=== PATIENT | male | born 1955 | race Caucasian/White ===

== ENCOUNTER → 2023-04-24 | Outpatient (CLI) | payer MEDICARE, OTHER, SELFPAY ==
--- NOTE | 2023-04-24 14:25 | CT_ITS ---
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 2D reformats were reviewed. A radiation dose optimization technique was used for this scan. IV Contrast dosage and agent: None. RADIATION DOSAGE (If Supplied By Facility): CTDIvol = ( 27.28 ) mGy, DLP = ( 1074.06 ) mGycm COMPARISON: No relevant prior comparison study available FINDINGS: VERTEBRAE: Lucency in the inferior aspect of the vertebral body of T4 vertebra probably chronic. No evidence of acute compression fracture deformity. No otherwise discrete lytic or blastic abnormality observed. VERTEBRAL ALIGNMENT: Mild increased kyphosis. Minimal dextroscoliosis. The alignment of the vertebral bodies unremarkable. DISCS: Narrowing of several thoracic and upper lumbar disc spaces with vacuum discs. Endplate spondylosis at multiple levels. Posterior fusion of the cervical and upper thoracic spine to the level of T7. Difficult to accurately evaluate the disks and the soft tissues due to significant artifacts. VISUALIZED THORAX: Visualized thoracic aorta is nondilated. The visualized lungs appear unremarkable. CT/Spine Thoracic without Contras IMPRESSION: 1. Fusion of the cervical and upper thoracic spine. 2. Multilevel degenerative changes. Electronically Signed: Levy Fitch MD at 15:46 EST ,
--- NOTE | 2023-04-24 14:25 | CT_ITS ---
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 2D reformatted images were reviewed. A radiation dose optimization technique was used for this scan. IV Contrast dosage and agent: None. RADIATION DOSAGE (If Supplied By Facility): CTDIvol = ( 26.13 ) mGy, DLP = ( 523.35 ) mGycm COMPARISON: No relevant prior comparison study available FINDINGS: VERTEBRAE: No fracture or traumatic subluxation. No discrete lytic or blastic abnormality. Straightening of the cervical spine. Alignment of the vertebral bodies is essentially unremarkable. Demineralization of the osseous structures. Normal craniocervical junction and cervicothoracic junction. DISCS and SPINAL CANAL: Posterior fusion of the entire cervical spine and visualized upper thoracic spine extending from the level of C1 with bilateral pedicle screws and rods. Laminectomy extending from the level of C2-C3 to the level of C7. Bilateral bony neural foraminal stenosis worse at the levels of C3-C4 and C4-C5. Difficult to accurately evaluate the disks due to artifacts. NECK SOFT TISSUES: No prevertebral soft tissue swelling. There is no cervical adenopathy. LUNG APICES: Clear. CT/Spine Cervical without Contras IMPRESSION: 1. No evidence of acute cervical spinal fracture or spondylolisthesis. 2. Fusion of the cervical and upper thoracic spine as described above. Electronically Signed: Levy Fitch MD at 15:23 EST ,
--- OUTSIDE RECORDS SUMMARY | 2023-04-24 14:36 | XMS RPT_ITS | CCD ---
Author Name Unknown Address [address] [place] [address] Organization [facility] Care Team Providers Care Ocean Export Account Manager Name Role Phone Valery MONTANA Primary Care Unavailable Valery MONTANA Primary Care Unavailable Valery MONTANA Attending Unavailable Valery MONTANA Admitting Unavailable Valery MONTANA Attending Unavailable Valery MONTANA Admitting Unavailable Valery MONTANA Primary Care Unavailable Valery MONTANA Consulting Unavailable Valery MONTANA Attending Unavailable NAN, R SPIKE Admitting Unavailable NAN, R SPIKE Primary Care Unavailable PROVIDER, UNKNOWN Consulting Unavailable PROVIDER, UNKNOWN Consulting Unavailable PROVIDER, UNKNOWN Consulting Unavailable Valery MONTANA Consulting Unavailable OSCAR BENITEZ MD Admitting Unavailable OSCAR BENITEZ MD Primary Care Unavailable OSCAR BENITEZ MD Attending Unavailable PROVIDER, UNKNOWN Consulting Unavailable PROVIDER, UNKNOWN Consulting Unavailable PROVIDER, UNKNOWN Consulting Unavailable Valery MONTANA MD Unavailable [facility] Unavailable NEUROLOGY, GENERAL Unavailable Unavailable PHYSICAL THERAPY, CONSULT Unavailable Unavai lable OCCUPATIONAL, THERAPY Unavailable Unavailabl barbara JUSTICE MD, JESSICA Streeter Unavailable [facility] [place] Unavailable Unavailable SURGERY, GENERAL Unavailable Unavailable SHARLENE DENNEY, GRABIEL Unavailable LYDIA HICKS MD Unavailable ORTHOPEDICS, REMINGTON Unavailable RICARDO MCALLISTER MD Unavailable Nelia PURVIS MD Unavailable Hailey Ramos RN Unavailable Unavailable Loyda AYALA, Ruthie Unavailable UnavailJOZEF Renee Unavailable Unavailable KHANG ELLIOTT Unavailable Unavailable Elba AYALA, Maggi Unavailable Unavailable Zoey Escamilla Unavailable Unavailable Jamal Mcallister Unavailable Unavailable GRIS PURVIS Unavailable Unavailable TORRES GARNER Unavailable Unavailable ARABELLA DENNEY, PAGE Baugh Unavailable TETO AYALA, SARAH Unavailable Unavailable Eladia AYALA, Karma Unavailable Unavailab Aliyah Myrick Unavailable Unavailable Alecia Purvis Unavailable Unavailable BRIAN RABAGO Unavailable Unavailable Unavailable Unavailable Allergies Allergy Classification Reported Allergen(s) Allergy Type Date of Onset Reaction(s) Facility (1 source) 11/30/2018 (+) CDIFF TOXIN & AG; Translations: [11/30/2018 (+) CDIFF TOXIN & AG] Propensity to adverse reactions (disorder) [facility] Repository (1 source) Hmg-Coa Reductase Inhibitors (Statins) 3 [facility]; [facility] Medications Current Medications Medication Drug Class(es) Dates Sig (Normalized) Sig (Original) aspirin 81 mg delayed release oral tablet (1 source) Platelet Aggregation Inhibitor, Nonsteroidal Anti-inflammatory Drug take 1 tablet by mouth once daily ASPIRIN ADULT LOW STRENGTH, 81MG (Oral Tablet Delayed Release) ; 1 daily (81 MG) baclofen 20 mg oral tablet (1 source) gamma-Aminobutyric Acid-ergic Agonist Start: 10-13-2022 baclofen 20 mg tablet ; 1 (one) Tablet three times daily for 30 days Quantity: 135 {Tablet} Refills: 5 Ordered: 13-Oct-2022 MD Valery MONTANA Start: 13-Oct-2022 Comments: 2 tablets in am, 1 at noon, 1.5 tablets at bedtime. Completed/Discontinued Medications Medication Drug Class(es) Dates Sig (Normalized) Sig (Original) acetaminophen 650 mg oral tablet (1 source) take 1 tablet by mouth between dinner and bedtime Acetaminophen 650 MG Oral Tablet ; 1 every evening (650 MG) Status: Inactive acetaminophen 300 mg / codeine phosphate 30 mg oral tablet (1 source) Opioid Agonist Start: 09-23-2011 End: 09-28-2011 take 1 tablet by mouth every six hours as needed ACETAMINOPHEN-CODEI NE #3, 300-30MG (Oral Tablet) ; 1 (one) Tablet every six hours, as needed DO NOT TAKE IF DRIVING for 5 days Quantity: 20 {Tablet} Refills: 0 Ordered: 03-Oct-2011 MD Valery MONTANA Start: 23-Sep-2011 End: 28-Sep-2011 Status: Inactive Comments: Medication taken as needed. Problems Active Problems Problem Classification Problem Date Documented Da te Episodic/Chronic Acquired foot deformities (3 sources) Left foot drop; Translations: [Foot drop, left foot] 07-28-2022 Episodic Complication of device; implant or graft (1 source) Infection associated with catheter; Translations: [Infection and inflammatory reaction due to cranial or spinal infusion catheter, initial encounter] 06-11-2018 Episodic Congestive heart failure; nonhypertensive (2 sources) Chronic heart failure; Translations: [Heart failure, unspecified] 10-19-2022 Chronic Coronary atherosclerosis and other heart disease (9 sources) Multi vessel coronary artery disease; Translations: [Atherosclerotic heart disease of [place] coronary artery without angina pectoris] 05-07-2020 Chronic Past or Other Problems Problem Classification Problem Date Documented Da te Episodic/Chronic Coronary atherosclerosis and other heart disease (2 sources) Coronary atherosclerosis and other heart disease 12-07-2021 Unclassified (1 source) !Patient notification of lab results - Dr. Montana. The test(s) that you had done were/was blood work. The results of your testing were normal . You should call our office if you have any questions. Please continue your current medication/therapy and follow up as scheduled. 12-19-2022 Unclassified (1 source) !Patient notification of lab results - Dr. Montana. The test(s) that you had done were/was blood work (This showed that your potassium was 6.0 which is high. The previous result was 5.6. Please let us know if you are taking any potassium supplement and also whether you were at a draw station for the labs in October and this week or if you were at the hospital lab. If you weren't at the hospital lab, we should repeat these at the hospital lab to be sure the potassium isn't leaking out of the cells during the transport of the specimen (and causing a false elevation). The level is high enough on the most recent test that I would recommend getting the testing done in the next day or two because if it's truly that elevated, you may need some changes to your medication regimen.). You should call our office if you have any questions. 11-22-2022 Unclassified (1 source) !Patient notification of lab results - Dr. Montana. The test(s) that you had done were/was blood work (The test for potential heart failure was somewhat elevated so I would recommend you continue the 20 mg of furosemide and get labs in 2 weeks but continue the medication. Your potassium was elevated at 5.6 but this will be repeated with the scheduled lab. I would like to schedule an echocardiogram to assess your heart function.). You should call our office if you have any questions. 10-19-2022 Unclassified (1 source) Skin Lesion, Facial - Note for Facial skin lesion : Left judaism mole has changed and is now growing outward. Right shoulder has lesion which currently appears similar to judaism lesion in the beginning. No pain. 10-19-2022 Unclassified (1 source) [ADDITIONAL REASON] Edema - Symptoms include edema. Onset was 2 week(s) ago (Does not decrease during the night when pt sleeps supine.). Note for Edema : Left ankle and hand swelling. 10-19-2022 Unclassified (1 source) evaluation for wheelchair improvements - Here for Mobility Exam; 07-28-2022 Unclassified (1 source) !Patient notification of lab results - Dr. Montana. The test(s) that you had done were/was blood work. The results of your testing were stable for your medical condition . You should call our office if you have any questions (Please try to get me the video we need to complete the orders for the power chair.). 11-10-2021 Unclassified (1 source) Neuropathy - Doing well on Gabapentin. 12-07-2021 Unclassified (1 source) [ADDITIONAL REASON] Foot pain - The foot pain has been occurring for 3 months. The pain affects the left foot. 12-07-2021 Unclassified (1 source) Ear blocked - Note for Blocked ear : Pt c/o ringing in ears for a long time . No pain. Sounds like locusts in there . 11-05-2020 Unclassified (1 source) Insomnia - Note for Insomnia : Pt. is taking his medication and it is working for him. Pt. consents to a telehealth visit today. He is aware that it will be billed to his insurance as an office visit would. 08-03-2020 Unclassified (1 source) Insomnia - Symptoms include difficulty staying asleep, while symptoms do not include difficulty falling asleep, unrefreshing sleep, daytime sleepiness, anxiety upon awakening or sleeping at inappropriate times. 05-07-2020 Unclassified (1 source) !Patient notification of lab results - Dr. Montana. The test(s) that you had done were/was blood work. The results of your testing were stable for your medical condition . You should call our office if you have any questions. 02-25-2020 Unclassified (1 source) Spinal cord injury - Pt needs Tizanidine refilled. Here for exam. 08-21-2018 Unclassified (1 source) medication pump drainage - Saw surgeon who put in pump on Jun 07. On Monday 8 had slight drainage from pump site. Had fever on Jun 09 (102). Surgeon's office told pt to be seen here. Pump put in 05/23/18 06-11-2018 Unclassified (1 source) !Patient notification of lab results - The test(s) that you had done were/was urine culture. Your tests were abnormal (3 different organisms) Please adjust your therapy by Starting Amoxicillin 500 mg 3x/day and Ciprofloxocin 500 mg 2x/day, both for 10 days. You should call our office to schedule an appointment for repeat lab in 2 weeks (urine culture). 12-22-2017 Unclassified (1 source) !Patient notification of lab results - Mo. The test(s) that you had done were/was urine culture. Your tests showed the following abnormalities: bactria sensitive to current antibiotic . Please continue your current medication/therapy. 11-30-2017 Unclassified (1 source) !Patient notification of lab results - Mo. The test(s) that you had done were/was a CBC (checks for anemia and infection), a CMP (kidneys, liver, nutrition, sugar) and a TSH (thyroid). The results of your testing were normal (urine culture pending) . Please continue your current medication/therapy. 11-28-2017 Unclassified (1 source) Blood pressure check - The symptoms include syncope (), while symptoms do not include headache. Note for Blood pressure check-up : Pt has low blood pressure. Usually in the mornings about 10-11am. He did pass out once. The sympotms started a few days ago. Weakness during episodes 11-27-2017 Unclassified (1 source) !Patient notification of lab results 1 - Reza. The test(s) that you had done were/was a lipid panel (cholesterol and triglycerides) (Your cholesterol is slightly high. You haven't done well with statin medications in the past so I would recommend you work on diet. May try red yeast rice.). You should call our office if you have any questions. 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 Patient states no cardiac issues: Denies chest pain, shortness of breath or swelling of feet/ankles. 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 11-03-2015 Unclassified (1 source) !Patient notification of lab results 1 - Mo. The test(s) that you had done were/was a TSH (thyroid). The results of your testing were normal . 10-01-2014 Unclassified (1 source) Follow up, Laboratory Test Results - Note for Follow up to discuss laboratory test results : Pt was last seen 3 weeks ago. 09-29-2014 Unclassified (1 source) !Patient notification of lab results 1 - Mo. The test(s) that you had done were/was a CBC (checks for anemia and infection), a CMP (kidneys, liver, nutrition, sugar) and a sedimentation rate (measures inflammation) ( and CRP). Your tests showed the following abnormalities: inflammation . You should call our office to schedule a referral (Dr Lenz, Cultural Anthropology Professor). 09-15-2014 Unclassified (1 source) Leg pain - The onset of the leg pain has been acute and has been occurring in an intermittent pattern for months. The course has been increasing. The leg pain involves both legs. There has been associated swelling in the leg. Note for Leg pain : night sweats 09-08-2014 Unclassified (1 source) !Patient notification of lab results 1 - Reza. The test(s) that you had done were/was a uric acid level and a lipid panel (cholesterol and triglycerides). The results of your testing were stable for your medical condition (since uric acid is normal, I don't think you would benefit from gout prevention medication) . Please adjust your therapy by startin Crestor 5 mg 1/2 tablet 3 days/week to help keep your coronary arteries open. Please note that we have included copies of your results and follow up as scheduled (Don't forget to log onto our web portal and ask a medical question!). 03-10-2014 Unclassified (1 source) Foot pain - The onset of the foot pain has been acute and has been occurring in a persistent pattern for 6 months. The course has been gradually worsening. The foot pain is moderate. The pain affects the left foot. The foot pain is described as being located in the great toe (underneath). Note for Foot pain : Patient stated, I have to take 6-8 pain pills a day or my foot gets so swollen to the point that I can barely walk. 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 03-07-2014 Unclassified (1 source) Congestion - Symptoms include cough (yellow), nasal congestion, nasal drainage, postnasal drip, runny nose (clear), sore throat and tearing. Onset was sudden 5 day(s) ago. Associated symptoms include fatigue, headache and hoarseness, while associated symptoms do not include fever. 03-29-2012 Unclassified (1 source) !Patient notification of lab results 1 - Dr. Montana. Note for !Patient notification of lab results 1 : LDL 93; Goal <70 but doing well for non-statin treatment. No change in treatment plan. 02-20-2012 Unclassified (1 source) Knee Pain - Note for Knee Pain : right knee. Here for exam. 02-04-2012 Unclassified (1 source) LACERATION - The injury occurred on - Date: 09/23/2011. It is located on the fingers (left middle finger, caught in double end production grinder). The injury is a worker's compensation claim . The patient's tetanus immunization is not up to date (2001). Note for LACERATION : Here for repair. 09-23-2011 Unclassified (1 source) *Patient notification of lab results 1 - Dr. Reza. The test(s) that you had done were/was a CMP (kidneys, liver, nutrition, sugar) and a lipid panel (cholesterol and triglycerides). The results of your testing were normal (except for high blood sugar) . Please note that we have included copies of your results and continue your current medication/therapy. 10-25-2010 Results Test Name Value Interpretation Reference Range Facil ity Vital Signs Date Time Vital Sign Value Performing Clinician Kaitlin villa 10-13-2022 16:01-0400 Diastolic blood pressure 51 mm[Hg] SARAH IRENE RN [facility] Encounters Encounter Date Encounter Type Care Provider Facility Start: 03-11-2023 End: 03-11-2023 [facility] Start: 12-17-2022 End: 12-17-2022 Follow-up encounter Valery MONTANA MD Work Phone: [facility] Start: 12-16-2022 End: 12-16-2022 ambulatory Valery MONTANA [facility] Start: 11-22-2022 End: 11-24-2022 Lab Only Valery MONTANA MD Work Phone: [facility] Start: 11-21-2022 End: 11-21-2022 Results Review Valery MONTANA MD Work Phone: [facility] Start: 11-21-2022 End: 11-21-2022 ambulatory Valery MONTANA [facility] Start: 11-09-2022 End: 11-09-2022 Transition of Care Valery MONTANA MD Work Phone: [facility] Start: 10-19-2022 End: 10-20-2022 Historical Summary Valery MONTANA MD Work Phone: [facility] Start: 10-18-2022 End: 10-18-2022 Procedure Order Valery MONTANA MD Work Phone: [employer] Start: 10-18-2022 End: 10-18-2022 Results Review Valery MONTANA MD Work Phone: [facility] [employer] Start: 10-15-2022 End: 10-15-2022 ambulatory Valery MONTANA [facility] Start: 10-13-2022 End: 10-13-2022 Office outpatient visit 15 minutes Valery MONTANA MD Work Phone: [facility] [place] [employer] Start: 07-28-2022 End: 07-28-2022 Office outpatient visit 15 minutes Valery MONTANA MD Work Phone: [facility] [place] [employer] Start: 06-27-2022 End: 06-27-2022 Phone Encounter Valery MONTANA MD Work Phone: [employer] Start: 06-05-2022 End: 06-07-2022 Medication Refill/Order Valery MONTANA MD Work Phone: [facility] [employer] Start: 06-03-2022 End: 06-05-2022 Phone Encounter Valery MONTANA MD Work Phone: [facility] [employer] Start: 03-08-2022 End: 03-08-2022 Medication Refill/Order Valery MONTANA MD Work Phone: [facility] [employer] Start: 03-01-2022 End: 03-01-2022 Historical Summary Valery MONTANA MD Work Phone: [employer] Start: 12-20-2021 End: 12-20-2021 Results Review Valery MONTANA MD Work Phone: [employer] Start: 11-23-2021 ambulatory Valery MONTANA Facility:[facility] Start: 11-09-2021 End: 11-09-2021 Results Review [facility] Start: 11-04-2021 End: 12-01-2021 Office outpatient visit 40 minutes [facility] Start: 11-01-2021 End: 11-01-2021 Medication Refill/Order [facility] Start: 10-29-2021 End: 10-30-2021 Medication Refill/Order [facility] Start: 08-27-2021 End: 08-27-2021 Medication Refill/Order [facility]NA [facility] Start: 08-07-2021 End: 08-07-2021 Medication Refill/Order [facility]NA [facility] Start: 05-11-2021 End: 05-11-2021 Medication Refill/Order [facility] Start: 04-12-2021 End: 04-12-2021 Medication Refill/Order [facility] Start: 03-23-2021 End: 03-23-2021 Historical Summary [facility] Start: 02-26-2021 End: 02-26-2021 Medication Refill/Order [facility]TANA [facility] Start: 12-02-2020 End: 12-02-2020 Medication Ref[facility]/Order [facility] Start: 11-05-2020 End: 11-05-2020 Office outpatient visit 15 minutes [facility] Start: 11-03-2020 End: 11-03-2020 Medication Refill/Order [facility] MONTANA [facility] Start: 10-12-2020 End: 10-12-2020 Medication Refill/Order [facility] MONTANA MD [facility] Start: 09-04-2020 End: 09-07-2020 Procedure Order Val[facility] MONTANA MD [facility] Start: 08-20-2020 End: 08-21-2020 Medication Refill/Order [facility] Start: 08-03-2020 End: 08-03-2020 Office outpatient visit 15 minutes [facility] Start: 05-26-2020 End: 05-26-2020 Phone Encounter [facility] Start: 05-07-2020 End: 05-07-2020 Office outpatient visit 15 minutes [facility] Start: 02-25-2020 End: 02-25-2020 Results Review Valery MONTANA MD [facility] [employer] Start: 02-06-2020 End: 02-06-2020 Lab Only [facility] Start: 02-05-2020 End: 02-05-2020 Office outpatient visit 15 minutes Valery MONTANA MD Work Phone: [facility] [employer] Start: 02-04-2020 End: 02-04-2020 Medication Refill/Order Valery MONTANA MD Work Phone: [facility] [employer] Start: 11-11-2019 End: 11-11-2019 Medication Refill/Order [facility] Start: 10-04-2019 End: 10-04-2019 Historical Summary Valery MONTANA MD Work Phone: [facility] Start: 09-20-2019 End: 09-20-2019 Historical Summary Valery MONTANA MD Work Phone: [facility] [employer] Start: 05-28-2019 End: 05-28-2019 Phone Encounter Valery MONTANA MD Work Phone: [facility] Start: 05-23-2019 End: 05-23-2019 Phone Encounter Valery MONTANA MD [facility] Phone: [facility] [employer] Start: 03-14-2019 End: 03-14-2019 Historical Summary Valery MONTANA MD Work Phone: [employer] [facility] [employer] Start: 01-03-2019 End: 01-03-2019 Medication Refill/Order Valery MONTANA MD Work Phone: [facility] [employer] Start: 01-01-2019 End: 01-01-2019 Medication Refill/Order Valery MONTANA MD Work Phone: [facility] [employer] Start: 12-29-2018 End: 12-29-2018 Lab Only Valery MONTANA MD Work Phone: [facility] [email or web address]. Start: 12-17-2018 End: 12-17-2018 Lab Only Valery MONTANA MD Work Phone: [facility] [email or web address]. Start: 12-01-2018 End: 12-01-2018 Phone Encounter Valery MONTANA MD Work Phone: [facility] [employer]. Start: 11-29-2018 End: 11-29-2018 Lab Only Valery MONTANA MD [facility] [email or web address] Start: 11-27-2018 End: 11-29-2018 Medication Refill/Order Valery MONTANA MD Work Phone: [facility] [email or web address]. Start: 11-05-2018 End: 11-05-2018 Medication Refill/Order Valery MONTANA MD Work Phone: [facility] [employer] Start: 08-21-2018 End: 08-21-2018 Office outpatient visit 15 minutes Valery MONTANA MD [facility] Start: 06-11-2018 End: 06-11-2018 Office outpatient visit 15 minutes Valery MONTANA MD [facility] [email or web address] Start: 05-25-2018 End: 05-25-2018 Medication Refill/Order Valery MONTANA MD Work Phone: [facility] [employer] Start: 04-26-2018 End: 04-26-2018 Historical Summary Valery MONTANA MD Work Phone: [employer] Start: 04-05-2018 End: 04-05-2018 Transition of Care Valery MONTANA MD Work Phone: [place] [employer] Start: 04-04-2018 End: 04-04-2018 Medication Refill/Order Valery MONTANA MD Work Phone: [employer]. Start: 03-10-2018 End: 03-10-2018 Transition of Care Valery MONTANA MD [facility]: [facility] Start: 02-12-2018 End: 02-12-2018 Historical Summary Valery MONTANA MD Work Phone: [facility] [employer] Start: 02-08-2018 End: 02-08-2018 Injection/immunization only Valery MONTANA MD Work Phone: [employer] Start: 01-12-2018 End: 01-12-2018 Lab Only Valery MONTANA MD Work Phone: [employer] Start: 12-26-2017 End: 12-26-2017 Medication Refill/Order Valery MONTANA MD Work Phone: [employer] [facility] [employer] Start: 12-22-2017 End: 12-22-2017 Patient encounter procedure Valery MONTANA MD [facility] Start: 12-19-2017 End: 12-19-2017 Lab Only Valery MONTANA MD Work Phone: [employer] Start: 12-12-2017 End: 12-13-2017 Lab Only Valery MONTANA MD Work Phone: [employer] Start: 11-30-2017 End: 11-30-2017 Results Review Valery MONTANA MD Work Phone: [facility] [email or web address]. Start: 11-29-2017 End: 11-29-2017 Medication Refill/Order Valery MONTANA MD Work Phone: [facility] [email or web address]. Start: 11-28-2017 End: 11-28-2017 Nutrition therapy Valery MONTANA MD Work Phone: [facility] [place] Start: 11-27-2017 End: 11-27-2017 Lab Only Valery MONTANA MD Work Phone: [facility] [email or web address]. Start: 11-27-2017 End: 11-27-2017 Office outpatient visit 25 minutes Valery MONTANA MD [facility] [email or web address] Start: 09-28-2017 End: 09-28-2017 Procedure Order Valery MONTANA MD Work Phone: [facility] [email or web address]. Start: 09-21-2017 End: 09-21-2017 Medication Refill/Order Valery MONTANA MD Work Phone: [facility] [employer] Start: 09-01-2017 End: 09-01-2017 Medication Refill/Order Valery MONTANA MD Work Phone: [facility] [place] Start: 08-03-2017 End: 08-03-2017 Historical Summary Valery MONTANA MD Work Phone: [facility] [email or web address] Start: 08-03-2017 End: 08-03-2017 Medication Refill/Order Valery MONTANA MD Work Phone: [facility] [email or web address]. Start: 06-05-2017 End: 06-05-2017 Medication Refill/Order Valery MONTANA MD Work Phone: [facility] [employer] Start: 02-29-2016 End: 02-29-2016 Lab Only Valery MONTANA MD Work Phone: [place] [facility] [facility] [email or web address] Start: 02-27-2016 End: 02-27-2016 Lab Only Valery MONTANA MD Work Phone: [place] [facility] [employer] Start: 11-09-2015 End: 11-09-2015 Historical Summary Valery MONTANA MD Work Phone: [place] [facility] [employer]. Start: 11-07-2015 End: 11-07-2015 Results Review Valery MONTANA MD Work Phone: [place] [facility] [email or web address] Start: 11-03-2015 End: 11-03-2015 Procedure Order Valery MONTANA MD Work Phone: [place] [facility] [employer] Start: 11-03-2015 End: 11-03-2015 Office outpatient visit 15 minutes Valery MONTANA MD Work Phone: [place] [facility] [employer] Start: 09-28-2015 End: 09-28-2015 Results Review Valery MONTANA MD Work Phone: [place] [employer] Start: 09-23-2015 End: 09-23-2015 Historical Summary Valery MONTANA MD Work Phone: [place] [facility] [email or web address] Start: 09-08-2015 End: 09-08-2015 Historical Summary Valery MONTANA MD Work Phone: [place] [facility] [employer]. Start: 10-01-2014 End: 10-01-2014 Results Review Valery MONTANA MD Work Phone: [facility] [employer]. Start: 09-29-2014 End: 09-29-2014 Office outpatient visit 15 minutes Valery MONTANA MD Work Phone: [facility] Start: 09-15-2014 End: 09-15-2014 Patient encounter procedure Valery MONTANA MD Work Phone: [facility] Start: 09-13-2014 End: 09-13-2014 Lab Only [facility] Start: 09-08-2014 End: 09-08-2014 Office outpatient visit 15 minutes Valery MONTANA MD Work Phone: [facility] [facility] Start: 03-27-2014 End: 03-27-2014 Results Review [facility]TANA [facility] Start: 03-10-2014 End: 03-10-2014 Follow-up encounter Valery MONTANA MD [facility] Start: 03-07-2014 End: 03-07-2014 Office outpatient visit 15 minutes Valery MONTANA MD [facility] Start: 03-29-2012 End: 03-29-2012 Patient encounter procedure Valery MONTANA MD Work Phone: [facility] Start: 02-20-2012 End: 02-20-2012 Results Review Valery MONTANA MD Work Phone: [facility] Start: 02-18-2012 End: 02-18-2012 Lab Only Valery MONTANA MD Work Phone: [facility] [employer] Start: 02-04-2012 End: 02-04-2012 Patient encounter procedure Valery MONTANA MD Work Phone: [facility] Start: 09-23-2011 End: 09-23-2011 Patient encounter procedure Valery MONTANA MD Work Phone: [facility] Start: 09-23-2011 End: 09-23-2011 Medication Refill/Order Valery [facility]TANA MD [facility] Start: 09-23-2011 End: 09-23-2011 Patient encounter procedure Valery MONTANA MD Work Phone: [facility] Start: 11-26-2010 End: 11-26-2010 Results Review Valery MONTANA MD Work Phone: [facility] Start: 10-25-2010 End: 10-25-2010 Nutrition therapy Valery MONTANA MD [facility] Start: 10-23-2010 End: 10-23-2010 Lab Only Valery MNOTANA MD Work Phone: [place] [facility] Start: 08-23-2010 End: 08-23-2010 Historical Summary Valery MONTANA MD [facility] Phone[facility] Procedures Date Procedure Procedure Detail Performing Clinician Start: 10-13-2022 End: 10-13-2022 Dischrg meds reconciled w/current med list Valery MONTANA MD Work Phone: Start: 07-28-2022 End: 07-28-2022 Dischrg meds reconciled w/current med list Valery MONTANA MD Work Phone: Start: 11-04-2021 End: 11-04-2021 Dischrg meds reconciled w/current med list Valery MONTANA MD Work Phone: Start: 11-01-2021 End: 11-01-2021 Collj & interpj physiol data min 30 min ea 30 d BRIAN RABAGO Start: 12-02-2020 End: 12-02-2020 Collj & interpj physiol data min 30 min ea 30 d Alecia Purvis Start: 11-05-2020 End: 11-05-2020 Dischrg meds reconciled w/current med list Valery MONTANA MD Work Phone: Start: 11-03-2020 End: 11-03-2020 Collj & interpj physiol data min 30 min ea 30 d Valery MONTANA MD Work Phone: Start: 08-03-2020 End: 08-03-2020 Dischrg meds reconciled w/current med list Valery MONTANA MD Work Phone: Start: 08-03-2020 End: 08-03-2020 Urinary Incontinence Zoey Escamilla Start: 05-07-2020 End: 05-07-2020 Dischrg meds reconciled w/current med list Valery MONTANA MD Work Phone: Start: 05-07-2020 End: 05-07-2020 Collj & interpj physiol data min 30 min ea 30 d Valery MONTANA MD Work Phone: Start: 02-05-2020 End: 02-05-2020 Dischrg meds reconciled w/current med list Valery MONTANA MD Work Phone: Start: 02-04-2020 End: 02-04-2020 Collj & interpj physiol data min 30 min ea 30 d Valery MONTANA MD Work Phone: Start: 11-05-2018 End: 11-05-2018 Collj & interpj physiol data min 30 min ea 30 d Alecia Purvis Start: 08-21-2018 End: 08-21-2018 Collj & interpj physiol data min 30 min ea 30 d Valery MONTANA MD Work Phone: Start: 08-21-2018 End: 08-21-2018 Dischrg meds reconciled w/current med list Valery MONTANA MD Work Phone: Start: 06-11-2018 End: 06-11-2018 Dischrg meds reconciled w/current med list JESSICA JUSTICE MD Work Phone: Start: 05-23-2018 End: 05-23-2018 Partial Lumbar Laminectomy SARAH IRENE RN Plan of Treatment Date Care Activity Detail Author Start: 11-22-2022 Basic metabolic panel calcium total BMP (76705) Start: 22-Nov-2022 13:12 Request [facility] [employer] [email or web address] Start: 10-18-[facility] compl spec&colr d CARDIAC ECHO WITH DOPPLER ([id number]) Start: 18-Oct-2022 Intent [employer].; [facility] [email or web address] Start: 10-13-2022 Basic metabolic panel calcium total BMP ([id number]) Start: 13-Oct-2022 16:47 Request [employer].; [facility] [email or web address]. Start: 10-13-2022 Natriuretic peptide BNP ([id number]) POMERENE Start: 13-Oct-2022 16:46 Request [employer].; [facility] [email or web address] Start: 11-05-2020 Removal impacted cerumen irrigation/lvg unilat CERUMEN REMOVAL USING IRRIGATION/LAVAGE ([id number]) Start: 05-Nov-2020 Intent [employer].; [facility] [email or web address] Start: 08-03-2020 Collj & interpj physiol data min 30 min ea 30 d QUERY OARRS REPORT ([id number]) Start: 03-Aug-2020 Intent [employer].; [facility] [email or web address] Start: 02-06-2020 Blood count complete auto&auto difrntl wbc CBC, PLATELETS & AUT DIFF ([id number]) Start: 06-Feb-2020 9:36 Request [employer].; [facility] [employer] Start: 02-06-2020 Comprehensive metabolic panel CMP - COMPREHENSIVE METABOLIC PANEL ([id number]) Start: 06-Feb-2020 9:36 Request [employer].; [facility] [employer] Start: 02-06-2020 Lipid panel LIPID PANEL ([id number]) Start: 06-Feb-2020 9:36 Request [facility] [email or web address] [facility] [employer], [employer]. Start: 11-11-2019 Collj & interpj physiol data min 30 min ea 30 d QUERY OARRS REPORT ([id number]) Start: 11-Nov-2019 Intent [facility] [email or web address] [facility], [employer]. Start: 12-29-2018 Culture bct isol&prsmptv id isolate ea urine URINE TWYLA CULTURE-ID ([id number]) Start: 29-Dec-2018 11:21 Request [facility] [email or web address] [facility], [employer]. Start: 12-17-2018 Iaad ia clostridium difficile toxin C DIFF TOXIN A+B, EIA ([id number]) Start: 17-Dec-2018 11:03 Request [facility] [email or web address] [facility], [employer]. Start: 12-13-2017 Culture bacterial quanttative colony count urine URINE TWYLA CULTURE-RADHA COL COUNT ([id number]) Start: 13-Dec-2017 13:51 Request [facility] [email or web address] [facility] [employer] Start: 11-27-2017 Culture bct isol&prsmptv id isolate ea urine URINE TWYLA CULTURE-ID ([id number]) Start: 27-Nov-2017 15:33 Request [facility] [email or web address].; [facility] [employer], [employer]. Start: 11-03-2015 Cv strs tst xers&/or rx cont ecg w/si&r [employer].; [facility] [employer] Start: 09-08-2014 Creatine kinase total CPK TOTAL ([id number]) Start: 08-Sep-2014 16:36 Request [employer].; [facility] Colin [employer], [employer]. Start: 09-08-2014 C-reactive protein C-REACTIVE PROTEIN ([id number]) Start: 08-Sep-2014 16:35 Request [employer].; [facility] [employer] Start: 09-08-2014 Sedimentation rate rbc non-automated [facility] [email or web address].; [employer]. Start: 09-08-2014 Comprehensive metabolic panel CMP - COMPREHENSIVE METABOLIC PANEL ([id number]) Start: 08-Sep-2014 16:35 Request [employer].; [employer] [facility] [employer]. Start: 09-08-2014 Blood count complete auto&auto difrntl wbc CBC W/AUTO DIFF WBC ([id number]) Start: 08-Sep-2014 16:34 Request [facility] [email or web address] [facility] [email or web address] Start: 09-08-2014 X-ray exam of hips X-RAY HIPS WITH A/P PELVIS- COMPLETE - BILAT([id number]) Start: 08-Sep-2014 Intent [facility] [employer]; [employer] [facility] [email or web address] Start: 03-07-2014 Patient Education GOUT Indication: History of gout Start: 07-Mar-2014 Instruction Type: Patient Education [facility] [email or web address] [facility] [email or web address] Start: 03-29-2012 Patient Education [facility] [email or web address].; [employer] [facility] [email or web address] Start: 02-18-2012 Lipid panel LIPID PANEL ([id number]) Start: 18-Feb-2012 8:46 Request [facility] [email or web address].; [employer] [facility] [email or web address] Start: 02-04-2012 Radex foot complete minimum 3 views X-RAY EXAM OF FOOT - COMPLETE - 3 VIEWS ([id number]) Start: 04-Feb-2012 Intent Comments: Left foot with attention to 1st MTP which is the site of pain and swelling. [facility] [email or web address].; [employer] [facility] [email or web address] Immunizations Immunization Date Immunization Notes Care Provider Anna vásquez 02-09-2018 influenza, injectabl e, quadrivalent, contains preservative R SPIKE MONTANA MD Work Phone: [facility] [employer]; [facility] [employer] Payers Date Payer Category Payer Unknown [id number] 2019 Unknown [id number] 1955 Unknown [id number] 1955 Unknown [id number] 1955 Unknown [id number] [id number] 1955 Unknown [id number] [id number] [id number] 1955 Unknown [id number] [id number] Medicare [id number] Unknown Social History Date Type Detail Facility Alcohol Use: Alcohol Use: ; [facility] Tobacco use: Tobacco use: ; [facility]. [facility] Work Phone: [facility] smoked tobacco [facility] Work Phone: Summary Purpose Family History No Family History Records FoundNo Family History Records FoundNo Family History Records FoundNo Family History Records FoundNo Family History Records Found Advance Directives No Advanced Directives Records FoundNo Advanced Directives Records FoundNo Advanced Directives Records FoundNo Advanced Directives Records FoundNo Advanced Directives Records Found Additional Source Comments (unrecognized sect ion and content) No Status Records FoundNo Status Records FoundNo Status Records FoundNo Status Records FoundNo Status Records Found INFORMATION SOURCE (unrecogn ized section and content) DATE CREATED AUTHOR AUTHOR'S ORGANIZ ATION 03/19/2019 [facility] DATE CREATED AUTHOR AUTHOR'S ORGANIZ ATION 11/25/2021 [facility] ([place]) DATE CREATED AUTHOR AUTHOR'S ORGANIZ ATION 12/03/2021 [facility] DATE CREATED AUTHOR AUTHOR'S ORGANIZ ATION 03/13/2023 [facility] FOR RECORDS PERTAINING TO PATIENTS WHO ARE OR HAVE BEEN ENROLLED IN A CHEMICAL DEPENDENCY/SUBSTANCEABUSE PROGRAM, SOME INFORMATION MAY BE OMITTED. This clinical summary was aggregated from multiple sources. Caution should be exercised in using it in the provision of clinical care. This summary normalizes information from multiple sources, and as a consequence, information in this document may materially change the coding, format and clinical context of patient data. In addition, data may be omitted in some cases. CLINICAL DECISIONS SHOULD BE BASED ON THE PRIMARY CLINICAL RECORDS. [facility] [employer] [facility]. provides no warranty or guarantee of the accuracy or completeness of information in this document.
== END | disposition home or self-care (01) ==
PROVIDERS: PCP Family Medicine; Referring Provider Psychiatry & Neurology Neurology; Visit Provider Psychiatry & Neurology Neurology
DX: G95.9 Disease of spinal cord, unspecified (principal); S22.009S Unspecified fracture of unspecified thoracic vertebra, sequela; Z87.81 Personal history of (healed) traumatic fracture; X58.XXXS Exposure to other specified factors, sequela
CPT/HCPCS: 72125; 72128

== ENCOUNTER → 2023-11-27 | Outpatient (CLI) | payer MEDICARE, OTHER, SELFPAY ==
[2023-11-27 18:04] LABS: Hematocrit 39.8 % (40-54); Hemoglobin 13.5 g/dL (13.0-16.5); Mean Corp Hgb Conc 33.9 g/dL (32-36); Mean Corpuscular Hgb 31.1 pg (27.0-32.0); Mean Corpuscular Volume 91.7 fL (80-94); Mean Platelet Vol. 11.1 fl (6.2-12.0); Platelet Count 255 K/mm3 (150-450); RBC Distribution Width CV 12.4 % (11.6-14.6); RBC Distribution Width SD 41.3 fl (35.1-43.9); Red Blood Count 4.34 M/mm3 (4.6-6.2); White Blood Count 6.6 K/mm3 (4.4-11.0)
[2023-11-27 19:04] LABS: ALB/GLOB Ratio 1.1 RATIO (0.9-2.4); AST(SGOT) 21 U/L (15-37); Alanine Aminotransfer ALT/SGPT 24 U/L (16-61); Albumin, Serum 3.7 g/dL (3.2-5.0); Alkaline Phosphatase 113 U/L (45-117); Anion Gap 8 (5-15); BUN 14 mg/dL (7-18); BUN/Creat Ratio 13.6 RATIO (10-20); Bilirubin, Direct 0.13 mg/dL (0.00-0.30); Calcium,Total 9.1 mg/dL (8.5-10.1); Chloride 108 mmol/L (98-107); Creatinine, Serum 1.03 mg/dL (0.70-1.30); EST Glomerular Filtration Rate 76 mL/min (>60); Est Glom Filt Rate - Afr Amer 92 mL/min (>60); Globulin 3.3 g/dL (2.2-4.2); Glucose 92 mg/dL (74-106); Magnesium 2.2 mg/dL (1.6-2.6); Potassium 3.9 mmol/L (3.5-5.1); Sodium Level 140 mmol/L (136-145)
[2023-12-03 19:06] LABS: Vitamin B1, Thiamine 109.1 nmol/L (66.5-200.0)
== END | disposition home or self-care (01) ==
LOC: MTLAB 14:52
PROVIDERS: PCP Family Medicine; Referring Provider Psychiatry & Neurology Neurology; Visit Provider Psychiatry & Neurology Neurology
DX: G95.9 Disease of spinal cord, unspecified (principal); I51.7 Cardiomegaly; Z86.39 Personal history of other endocrine, nutritional and metabolic disease
CPT/HCPCS: 36415; 80053; 82248; 82652; 83735; 84425; 84443; 85027